=== PATIENT | male | born 1945 | race Caucasian/White ===

== ENCOUNTER 2021-12-12 20:42 | Inpatient (IN) | payer MEDICARE, BC ==
[~2021-12-12] VITALS: Ht 160 cm; Wt 44.9 kg
[2021-12-12 20:00] VITALS: BP 161/90
[2021-12-12 21:20] VITALS: BP 155/88
--- NOTE | 2021-12-12 21:20 | NUR ---
GPS ADMISSION NOTE, RECEIVED PATIENT FROM [facility]. PATIENT ARRIVED ON THIS UNIT AT 2120 VIA STRETCHER WITH 2 EMT ESCORTS. PATIENT ADMITTED ON A 5150 HOLD FOR DTS. PER HOLD PATIENT STATES, " I JUST WANT TO , LEAVE ME TO , AND I DON'T WANT TO LIVE ". PATIENT ADMITS TO ONGOING AND UNRESOLVED DEPRESSION. PATIENT DOES NOT FEEL SAFE AT THIS TIME. PATIENT DAUGHTER THINKS THAT HER MOTHER IS IMPULSIVE AND THIS IS A NEW BEHAVIOR. PATIENT UNABLE TO CONTRACT FOR SAFETY AT THIS TIME. THE 5150 WAS REVIEWED AND THE DOCUMENTATION IN THE 5150 HOLD APPEARS TO REFLECT THE PRESENTATION OF THE PATIENT. UPON FACE TO FACE ASSESSMENT PATIENT IS NOTED TO BEING HYPERVERBAL, DISHEVELED, DISORGANIZED, DEMANDING, COOPERATIVE, AND NEEDS REDIRECTION. PATIENT IS CURRENTLY LYING IN BED AWAKE. PATIENT IS DISPLAYING NO S/S OF APPARENT DISTRESS. PATIENT HAS CHRONIC LEFT ABDOMINAL AND LEFT BACK PAIN DUE TO HAVING SHINGLES. PATIENT IS TAKING ORAL PAIN MEDICATION FOR THIS PAIN. PATIENT BREATHING IS UNLABORED WITH EQUAL RISE AND FALL OF THE CHEST. PATIENT IS ALERT AND ORIENTATED X 3 ON ROOM AIR. PATIENT ASSISTED WITH TURING AND REPOSITIONING Q2HR AND PRN FOR COMFORT AND CIRCULATION. PATIENT HAS NO NEEDS AT THIS TIME. PATIENT DENIES HOMICIDAL IDEATIONS AT THIS TIME. PATIENT SIGNED ALL NECESSARY PAPER WORK. PATIENT ADVISED OF HER HOLD AND PATIENT RIGHTS BOOKLET GIVEN. PATIENT IS UNDER THE PSYCHIATRIC CARE OF DR. KHALIL AND THE MEDICAL CARE OF DR GONZALEZ. PATIENT BELONGINGS WERE INVENTORIED AND CHECKED FOR CONTRABAND. ALL CONTRABAND REMOVED AND STORED IN PATIENT HALLWAY LOCKER. PATIENT ADVANCED DIRECTIVES PREFERENCE, IMMUNIZATIONS QUESTIONER, NECESSARY PAPERWORK COMPLETED. PATIENT REFUSED SKIN ASSESSMENT. PATIENT ORIENTATED TO ROOM, FLOOR, AND STAFF WITH ALL QUESTIONS ANSWERED. PATIENT EDUCATED ON THE USE OF THE CALL VANESSA. PATIENT BED SIDE RAILS ARE UP X 2 FOR SAFETY. PATIENT BED IS LOCKED, LOW AND I WILL CONTINUE TO MONITOR THIS PATIENT Q 15 MIN WITH THE HELP OF STAFF TO MAINTAIN SAFETY.
[2021-12-12] MEDS ORDERED: AMOX1TAB16 PO (22:16)
[2021-12-12] MEDS ORDERED: PRED5DRO17 RIGHTEYE (22:16)
[2021-12-12] MEDS ORDERED: KETO5DRO39 RIGHTEYE (22:16)
[2021-12-12] MEDS ORDERED: BIMA2.5D6 RIGHTEYE (22:18)
[2021-12-12] MEDS ORDERED: BRIM5DRO2 RIGHTEYE (22:19)
[2021-12-12] MEDS ORDERED: HYDR-4209 PO (22:21)
[2021-12-12] MEDS ORDERED: LORAZEPAM 0.5 MG TABLET PO PRN (22:30)
[2021-12-12] MEDS ORDERED: MAGNESIUM HYDROXIDE 30 ML UDC PO PRN (22:30)
[2021-12-12] MEDS ORDERED: MAG HYDROX/AL HYDROX/SIMETH 30 ML UDC PO PRN (22:30)
--- NOTE | 2021-12-12 22:56 | NUR ---
GPS RN NOTE, PATIENT HAS A COMPLAINT OF FEELING ANXIOUS AND IS REQUESTING ATIVAN AT THIS TIME. PATIENT VITAL SIGNS ARE STABLE. GAVE ATIVAN 0.5MG PO Q6 HR PRN ORDERED. WILL REASSESS FOR ANXIETY AND I WILL CONTINUE TO MONITOR THIS PATIENT WITH THE HELP OF STAFF.
--- NOTE | 2021-12-12 23:00 | NUR ---
GPS RN NOTE, PATIENT HAS A COMPLAINT OF CHRONIC PAIN AT A 8 OUT OF 10 ON THE PAIN SCALE DUE TO SHINGLES ON HER LEFT ABDOMINAL AND BACK. PATIENT IS REQUESTING NORCO AT THIS TIME. [facility] AND INFORMED DR YANES OF MY FINDINGS. DR YANES ORDERED NORCO 5-325 1 TAB PO Q6HR PRN. ALL ORDERS NOTED AND CARRIED OUT WILL CONTINUE TO MONITOR THIS PATIENT WITH THE HELP OF STAFF.
[2021-12-12] MEDS: HYDROCODONE/APAP 5/325MG TABLET PO PRN (23:17)
--- NOTE | 2021-12-12 23:17 | NUR ---
GPS RN NOTE, PATIENT HAS A COMPLAINT OF CHRONIC PAIN AT A 8 OUT OF 10 ON THE PAIN SCALE DUE TO SHINGLES ON HER LEFT ABDOMINAL AND BACK. PATIENT IS REQUESTING NORCO AT THIS TIME. PATIENT VITAL SIGNS ARE STABLE. GAVE NORCO 5-325 1 TAB PO Q6HR PRN ORDERED. WILL REASSESS PAIN AND I WILL CONTINUE TO MONITOR THIS PATIENT WITH THE HELP OF STAFF.
[2021-12-12] MEDS ORDERED: BLOOD SUGAR DIAGNOSTIC 1 EACH STRIP IN ONE (23:30)
[2021-12-13] MEDS ORDERED: DEXTROSE 50%-WATER 50 ML DISP.SYRIN IV PRN
[2021-12-13] MEDS ORDERED: *INSULIN REGULAR(HUMULIN R)HUM 100 UNIT/ML VIAL SQ PRN
[2021-12-13 07:21] LABS: BASOPHILS # (AUTO) 0.1 K/uL (0.0-0.2); BASOPHILS % (AUTO) 1.4 % (0.0-2.0); EOSINOPHILS % (AUTO) 3.3 % (0.0-6.0); HEMATOCRIT 39 % (39-51); HEMOGLOBIN 13.3 g/dL (13.5-17.5); LYMPHOCYTES # (AUTO) 1.4 K/uL (0.8-4.8); LYMPHOCYTES % (AUTO) 21.7 % (20.0-44.0); MEAN CORPUSCULAR HGB CONC 34 g/dl (31.0-36.0); MEAN CORPUSCULAR VOLUME 91 fL (80-96); MONOCYTES # (AUTO) 0.5 K/uL (0.1-1.30); MONOCYTES % (AUTO) 8.1 % (2.0-12.0); NEUTROPHILS # (AUTO) 4.3 K/uL (1.8-8.9); NEUTROPHILS % (AUTO) 65.5 % (43.0-81.0); PLATELET COUNT (AUTO) 281 K/uL (150-450); RED BLOOD CELL COUNT(AUTO) 4.33 MIL/uL (4.5-6.0); WHITE BLOOD COUNT (AUTO) 6.6 K/uL (4.3-11.0)
[2021-12-13] MEDS: BLOOD SUGAR DIAGNOSTIC 1 EACH STRIP VI SCH ×4 (07:30→21:21)
[2021-12-13 07:50] LABS: CALCIUM, SERUM 8.7 mg/dL (8.5-10.1); CARBON DIOXIDE 31 mmol/L (21-32); CHLORIDE 103 mmol/L (98-107); CREATININE 0.6 mg/dL (0.6-1.3); GLUCOSE 96 mg/dL (74-106); POTASSIUM 3.9 mmol/L (3.5-5.1); SODIUM SERUM 139 mmol/L (136-145); UREA NITROGEN, BLOOD 11 mg/dL (7-18)
[2021-12-13 07:52] LABS: CHOLESTEROL 187 mg/dL (<200); HDL CHOLESTEROL 103 mg/dL (40-60); LDL 70 mg/dL (0-99); TRIGLYCERIDES 64 mg/dL (30-150)
[2021-12-13 08:00] VITALS: BP 138/73
--- NOTE | 2021-12-13 08:38 | NUR ---
RN-CO: PATIENT STATED TO DR SANTANA " I WON'T EAT IF YOU DON'T CHANGE MY DIET TO REGULAR DIET." PT REFUSED TO EAT BREAKFAST. DIET CHANGED TO REGULAR DIET PER PT REQUEST.
--- NOTE | 2021-12-13 09:20 | NUR ---
RN-CO: DR VAZQUEZ MADE AWARE TO RECONCILE HOME MEDS.
[2021-12-13] MEDS: GLUCERNA SHAKE 237 ML CAN PO SCH ×2 (09:36→17:18)
[2021-12-13] MEDS: ESCITALOPRAM OXALATE (10 MG) 10 MG TABLET PO SCH (09:40)
--- NOTE | 2021-12-13 10:09 | NUR ---
RN-CO: PATIENT DENIED SUICIDAL IDEATION, BUT HAS BLUNTED AFFECT. SHE IS IRRITABLE WITH PRESSURED SPEECH. SHE HAS POOR APETITE AND REQUESTED TO CHANGE HER DIET TO REGULAR, OR ELSE SHE WON'T EAT SHE STATED.NO ACUTE DISTRESS NOTED, WE WILL CONTINUE TO MONITOR AND KEEP HER SAFE.
[2021-12-13] MEDS: ACETAMINOPHEN 325 MG TABLET PO PRN (11:41)
[2021-12-13] MEDS: INSULIN REGULAR, HUMAN 100 UNIT/ML 3 ML VIAL SQ PRN ×2 (12:28→17:24)
[2021-12-13 16:13] VITALS: BP 142/82
--- NOTE | 2021-12-13 17:25 | NUR ---
BLOOD GLUCOSE 146. REFUSED INSULIN COVERAGE. RISKS VS BENEFITS EXPLAINED, VERBALIZED UNDERSTANDING AND STILL REFUSED. OFFERED TIMES THREE.
--- NOTE | 2021-12-13 17:35 | NUR ---
RN-CO: DR VAZQUEZ WAS NOTIFIED AGAIN TO RECONCILE HOME MEDS.
[2021-12-13] MEDS: KETOROLAC EYE 0.5% 3 ML BOTTLE RIGHTEYE SCH (18:40)
[2021-12-13 20:00] VITALS: BP 145/81
[2021-12-13 20:19] VITALS: BP 145/81
[2021-12-13] MEDS: HYDROCODONE/APAP 5/325MG TABLET PO PRN (20:29)
--- NOTE | 2021-12-13 20:31 | NUR ---
GPS RN NOTE: PAIN PATIENT C/O LEFT BACK PAIN 12/09 AND WANTED TO TAKE NORCO AT THIS TIME. PRN NORCO 5-325 MG 1 TAB PO ADMINISTERED. WILL REASSESS THE PATIENT FOR PAIN MEDICATION EFFECTIVENESS.
[2021-12-13] MEDS: prednisoLONE ACETATE 1% SUSP 5 ML BOTTLE RIGHTEYE SCH (21:13)
--- NOTE | 2021-12-13 22:00 | NUR ---
GPS RN NOTE PATIENT'S BLOOD GLUCOSE LEVEL IS 272 MG/DL, PATIENT REFUSED SLIDING SCALE INSULIN DESPITE OF RISKS AND BENEFITS EXPLANATIONS, PER PATIENT," I HAVE NEVER BEEN DIAGNOSED WITH DIABETES, I DON'T KNOW WHERE IT CAME FROM, I HAD SURGERY AND EVERYTHING WAS FINE AT THAT TIME." PATIENT CONTINUED TO REFUSE INSULIN TONIGHT X 3. WILL CONTINUE TO MONITOR.
--- NOTE | 2021-12-13 22:38 | NUR ---
GPS RN NOTE PATIENT REFUSED WEEKLY SKIN ASSESSMENT TONIGHT X 3 DESPITE OF EXPLANATIONS, PATIENT CONTINUED TO REFUSE. PATIENT IS EASILY ANXIOUS AND RESTLESS, WANTED TO SLEEP AND NOT TO BE BOTHERED AT NIGHT.
[2021-12-14] MEDS: HYDROCODONE/APAP 5/325MG TABLET PO PRN ×2 (06:27→22:58)
[2021-12-14] MEDS: BLOOD SUGAR DIAGNOSTIC 1 EACH STRIP VI SCH ×4 (07:49→21:34)
[2021-12-14 08:00] VITALS: BP 142/71
[2021-12-14] MEDS: GLUCERNA SHAKE 237 ML CAN PO SCH ×2 (08:04→17:05)
[2021-12-14] MEDS: ESCITALOPRAM OXALATE (10 MG) 10 MG TABLET PO SCH (08:39)
[2021-12-14] MEDS: TIMOLOL 0.25% SOL OPHTH 10 ML BOTTLE RIGHTEYE SCH ×2 (08:40→17:04)
[2021-12-14] MEDS: LATANOPROST EYE DROP 0.005% 2.5 ML BOTTLE RIGHTEYE SCH ×2 (08:40→17:04)
[2021-12-14] MEDS: KETOROLAC EYE 0.5% 3 ML BOTTLE RIGHTEYE SCH ×2 (08:40→17:04)
[2021-12-14] MEDS: prednisoLONE ACETATE 1% SUSP 5 ML BOTTLE RIGHTEYE SCH ×4 (08:41→21:34)
--- NOTE | 2021-12-14 11:00 | NUR ---
Treatment Plan: Pt refused to sign treatment plan. Pt withdrawn and isolative did not want to sign.
--- NOTE | 2021-12-14 11:00 | NUR ---
PEREZ Initial Discharge Note: Pt stated that she lives alone located at [address] [place] [address]; ([phone]). Pt would want to return back home upon dc. PEREZ will work with the MD, family, and pt to help coordinate an appropriate discharge.
--- NOTE | 2021-12-14 11:00 | NUR ---
PEREZ Clinical Note: Pt placed on a 5150 hold for danger to herself. Pt has been depressed at home and family stated that she needs inpatient treatment. Pt stated that she lives alone located at [address] [place] [address]; ([phone]). Pt would want to return back home upon dc.
--- NOTE | 2021-12-14 11:30 | NUR ---
SW Family Contact: SW attempted to contact pt's daughter Lea ([phone]) and left a detailed voicemail.
[2021-12-14] MEDS: INSULIN REGULAR, HUMAN 100 UNIT/ML 3 ML VIAL SQ PRN (12:09)
[2021-12-14 16:00] VITALS: BP 140/70
[2021-12-14 20:10] VITALS: BP 140/68
[2021-12-14 20:23] VITALS: BP 140/68
[2021-12-14] MEDS: ACETAMINOPHEN 325 MG TABLET PO PRN (20:24)
--- NOTE | 2021-12-14 20:26 | NUR ---
GPS RN NOTE: PAIN PATIENT C/O LEFT LOWER BACK AND LEFT KNEE PAIN 08/09 AND WANTED TO TAKE TYLENOL AT THIS TIME INSTEAD OF NORCO. PRN TYLENOL 650 MG PO ADMINISTERED PER PATIENT REQUEST. WILL CONTINUE TO MONITOR FOR ANY CHANGE OF CONDITION.
--- NOTE | 2021-12-14 21:47 | NUR ---
GPS RN NOTE PATIENT'S BS LEVEL IS 79 MG/DL, PATIENT IS ASYMPTOMATIC, TOOK A SHOWER. OFFERED SNACKS AND ORANGE JUICE AND PATIENT TOLERATED WELL. WILL CONTINUE TO MONITOR FOR ANY CHANGE OF CONDITION.
--- NOTE | 2021-12-14 23:00 | NUR ---
GPS RN NOTE: PAIN PATIENT C/O LEFT BACK PAIN 12/09 AND WANTED TO TAKE NORCO AT THIS TIME. PRN NORCO 5-325 MG 1 TAB PO ADMINISTERED PER PATIENT REQUEST. WILL REASSESS THE PATIENT FOR PAIN MEDICATION EFFECTIVENESS.
--- NOTE | 2021-12-15 06:52 | NUR ---
GPS RN NOTE PATIENT'S DAUGHTER KIYA CALLED AND STATED THAT SHE WANTS TO TALK TO HER MOTHER'S PSYCHIATRIST AT [phone], RELAYED MESSAGE TO LIBERTAD SANTANA AT THIS TIME AND SHAMA STATED HE WILL CALL KIYA.
[2021-12-15] MEDS: BLOOD SUGAR DIAGNOSTIC 1 EACH STRIP VI SCH ×4 (07:50→22:04)
[2021-12-15] MEDS: INSULIN REGULAR, HUMAN 100 UNIT/ML 3 ML VIAL SQ PRN ×3 (07:50→17:07)
[2021-12-15 08:00] VITALS: BP 160/84
[2021-12-15] MEDS: GLUCERNA SHAKE 237 ML CAN PO SCH ×2 (08:03→17:01)
--- NOTE | 2021-12-15 09:00 | NUR ---
RN NOTE- ALERT CONFUSED DEPRESSED TEARFUL HOPELESSNESS NOTED IN INTERACTIONS, PO INTAKE POOR MED COMPLIANT WITHDRAWN
--- NOTE | 2021-12-15 09:02 | NUR ---
PEREZ Family Contact: PEREZ received a call from patient's daughter Lea ([phone]) who stated that she is in the process of finding an assisted living in [place] and stated that they will contact this contract technical writer. PEREZ shared information and explained the 627/2355 process.
[2021-12-15] MEDS: HYDROCODONE/APAP 5/325MG TABLET PO PRN ×2 (09:12→16:44)
[2021-12-15] MEDS: KETOROLAC EYE 0.5% 3 ML BOTTLE RIGHTEYE SCH ×2 (09:13→17:01)
[2021-12-15] MEDS: LATANOPROST EYE DROP 0.005% 2.5 ML BOTTLE RIGHTEYE SCH ×2 (09:13→17:01)
[2021-12-15] MEDS: ESCITALOPRAM OXALATE (10 MG) 10 MG TABLET PO SCH (09:13)
[2021-12-15] MEDS: prednisoLONE ACETATE 1% SUSP 5 ML BOTTLE RIGHTEYE SCH ×4 (09:14→21:24)
[2021-12-15] MEDS: TIMOLOL 0.25% SOL OPHTH 10 ML BOTTLE RIGHTEYE SCH ×2 (09:14→17:01)
--- NOTE | 2021-12-15 11:31 | NUR ---
SW Family Contact: SW received a call from pt's daughter Lea ([phone]) who stated that she would actually want this board writer to find pt a nursing facility and is open for this board writer to find placement in the [place] location.
--- NOTE | 2021-12-15 11:33 | NUR ---
SNF Referral: PEREZ sent clinicals to Lea chaparro from [facility] ([phone]) for placement option. SW sent H & P, progress notes, and medication list.
[2021-12-15] MEDS: PREGABALIN 25 MG CAPSULE PO SCH ×2 (12:49→21:00)
--- NOTE | 2021-12-15 13:22 | NUR ---
PEREZ Family Contact: SW received a call from pt's daughter Lea ([phone]) stating that family might have DPOA and will send to this technical publications writer to review.
[2021-12-15 16:00] VITALS: BP 141/82
[2021-12-15 20:15] VITALS: BP 130/75
[2021-12-15 20:25] VITALS: BP 130/75
[2021-12-15] MEDS: ACETAMINOPHEN 325 MG TABLET PO PRN (21:14)
--- NOTE | 2021-12-15 21:16 | NUR ---
GPS RN NOTE: PAIN PATIENT C/O LEFT LOWER BACK AND LEFT KNEE PAIN 07/09 AND WANTED TO TAKE TYLENOL AT THIS TIME INSTEAD OF LYRICA. PRN TYLENOL 650 MG PO ADMINISTERED PER PATIENT REQUEST. WILL CONTINUE TO MONITOR FOR ANY CHANGE OF CONDITION.
--- NOTE | 2021-12-15 22:04 | NUR ---
PATIENT WAS OFFERED LYRICA ORDERED BY AT 2100 BUT PATIENT PREFERRED TO TAKE TYLENOL FIRST. AGAIN OFFERED LYRICA TO THE PATIENT AT THIS TIME BUT PATIENT STATED," NOT YET, LATER." WILL CHECK WITH THE PATIENT IF SHE AGREES TO TAKE LYRICA ORDERED.
--- NOTE | 2021-12-15 22:23 | NUR ---
GPS RN NOTE: MILK OF MAGNESIA GIVEN PATIENT C/O CONSTIPATION AND WANTED TO TAKE MEDICINE. PER PATIENT REQUEST, PRN MILK OF MAGNESIA ADMINISTERED ORDERED BY MD. WILL CONTINUE TO MONITOR.
--- NOTE | 2021-12-15 22:33 | NUR ---
GPS RN NOTE PATIENT'S BLOOD GLUCOSE LEVEL IS 162 MG/DL, PATIENT REFUSED SLIDING SCALE INSULIN X 3 ORDERED BY MD.
--- NOTE | 2021-12-15 22:39 | NUR ---
GPS RN NOTE: MEDICATION REFUSAL PATIENT WAS OFFERED LYRICA MULTIPLE TIMES BUT AT THIS TIME PATIENT STATED," I WILL SKIP IT TONIGHT." DESPITE OF RISKS AND BENEFITS EXPLANATIONS, PATIENT CONTINUED TO REFUSE.
--- NOTE | 2021-12-16 00:52 | NUR ---
GPS RN NOTE: NEW ORDER PER PATIENT, SHE NEEDS VITAMIN B12 INJECTION DURING HER STAY AT [facility] SINCE SHE NEEDS TO GET THIS INJECTION EVERY MONTH SINCE HER ABDOMINAL SURGERY LONG TIME BACK. PER PATIENT SHE HAD HER LAST VITAMIN B12 INJECTION ON October AND IS DUE THIS MONTH ON DECEMBER 18, 2021. PATIENT'S CONCERN RELAYED TO YAQUELIN MCGUIRE NP AND PROGRAM MANAGER TRANSPORTATION ORDERED VITAMIN B12 INJECTION PER PATIENT REQUEST. PATIENT MADE AWARE.
[2021-12-16] MEDS: ACETAMINOPHEN 325 MG TABLET PO PRN ×2 (03:59→20:01)
--- NOTE | 2021-12-16 04:02 | NUR ---
GPS RN NOTE: PAIN PATIENT C/O BACK PAIN 08/09 AND REQUESTED TO TAKE TYLENOL INSTEAD OF NORCO. PRN TYLENOL 650 MG PO ADMINISTERED. WILL CONTINUE TO MONITOR.
[2021-12-16] MEDS: BLOOD SUGAR DIAGNOSTIC 1 EACH STRIP VI SCH ×5 (07:30→21:14)
[2021-12-16 08:00] VITALS: BP 121/68
[2021-12-16] MEDS: prednisoLONE ACETATE 1% SUSP 5 ML BOTTLE RIGHTEYE SCH ×4 (08:04→20:53)
[2021-12-16] MEDS: TIMOLOL 0.25% SOL OPHTH 10 ML BOTTLE RIGHTEYE SCH ×2 (08:04→16:02)
[2021-12-16] MEDS: KETOROLAC EYE 0.5% 3 ML BOTTLE RIGHTEYE SCH ×2 (08:04→16:01)
[2021-12-16] MEDS: LATANOPROST EYE DROP 0.005% 2.5 ML BOTTLE RIGHTEYE SCH ×2 (08:10→16:02)
[2021-12-16] MEDS: GLUCERNA SHAKE 237 ML CAN PO SCH ×2 (08:42→17:47)
[2021-12-16] MEDS: PREGABALIN 25 MG CAPSULE PO SCH ×2 (09:18→20:53)
[2021-12-16] MEDS: ESCITALOPRAM OXALATE (10 MG) 10 MG TABLET PO SCH (09:18)
--- NOTE | 2021-12-16 10:38 | NUR ---
RN-CO: PATIENT IS ISOLATIVE AND DEPRESSED. UNMOTIVATED AND GUARDED. REFUSED TO PARTICIPATE IN GROUP ACTIVITIES. SHE DENIED SUICIDAL IDEATIONS.I ENCOURAGED HER TO VENTILATE FEELING AND GO OUT FROM HER ROOM AND ATTEND GROUP ACTIVITIES.
--- NOTE | 2021-12-16 10:52 | NUR ---
DPOA: SW received Lea ([phone]) DPOA document from daughter who is the general durable power of litigation attorney associate and general durable power of litigation attorney associate for health care. SW placed it in the chart.
--- NOTE | 2021-12-16 13:53 | NUR ---
RN-CO: PT IS ACCUSING STAFF THAT THEY ARE NOT GIVING HER EYE DROPS, HOWEVER , STAFF IS DILIGENT IN GIVING ALL HER PRESCRIBED MEDICATIONS AND IT IS DOCUMENTED THAT MED WERE GIVEN.
[2021-12-16 16:00] VITALS: BP 124/74
--- NOTE | 2021-12-16 17:18 | NUR ---
RN-CO: BS 126 , NO COVERAGE.
--- NOTE | 2021-12-16 19:15 | NUR ---
GPS RN NOTES RECEIVED PATIENT IN BED AWAKE, ALERT AND ORIENTED X3. ABLE TO MAKE NEEDS KNOWN. NO S/SX OF ACUTE DISTRESS NOTED. PATIENT REMAINS ANXIOUS, DEPRESSED MOOD, GUARDED, NEEDY. DENIES BEING SUICIDAL OR HOMICIDAL AT THIS TIME. SAFETY PRECAUTIONS MAINTAINED. WILL CONTINUE TO MONITOR Q15MIN ROUNDS FOR SAFETY AND BEHAVIOR.
[2021-12-16 20:00] VITALS: BP 126/74
[2021-12-16] MEDS: HYDROCODONE/APAP 5/325MG TABLET PO PRN (23:07)
[2021-12-17] MEDS: BLOOD SUGAR DIAGNOSTIC 1 EACH STRIP VI SCH (07:45)
[2021-12-17 08:00] VITALS: BP 113/68
[2021-12-17] MEDS: GLUCERNA SHAKE 237 ML CAN PO SCH (08:00)
--- NOTE | 2021-12-17 08:54 | NUR ---
SNF Contact: SW received a call from Lea from [facility] ([phone]) who stated that pt is accepted.
--- NOTE | 2021-12-17 08:56 | NUR ---
PEREZ Family Contact: PEREZ spoke with patient's daughter Lea ([phone]) DPOA and stated pt is accepted at [facility] and she would want to tour the facility.
[2021-12-17] MEDS: PREGABALIN 25 MG CAPSULE PO SCH ×2 (09:25→21:00)
[2021-12-17] MEDS: ESCITALOPRAM OXALATE (10 MG) 10 MG TABLET PO SCH (09:26)
[2021-12-17] MEDS: LATANOPROST EYE DROP 0.005% 2.5 ML BOTTLE RIGHTEYE SCH ×2 (09:29→16:39)
[2021-12-17] MEDS: prednisoLONE ACETATE 1% SUSP 5 ML BOTTLE RIGHTEYE SCH ×4 (09:29→21:00)
[2021-12-17] MEDS: TIMOLOL 0.25% SOL OPHTH 10 ML BOTTLE RIGHTEYE SCH ×2 (09:30→16:38)
[2021-12-17] MEDS: KETOROLAC EYE 0.5% 3 ML BOTTLE RIGHTEYE SCH ×2 (09:30→16:38)
--- NOTE | 2021-12-17 11:06 | NUR ---
Individual Therapy: PEREZ attempted to conduct brief therapy. Pt is confused and disorganized. Pt unable to have a proper conversation due to her dementia. Addendum: 12/17/21 at 1107 by PEREZ MILIAN wrong patient
--- NOTE | 2021-12-17 11:36 | NUR ---
RN-NOTES T.O FROM LIBERTAD ZUNIGA TO D/C ACCU CHECK. NOTED AND CARRIED OUT.
[2021-12-17] MEDS: ACETAMINOPHEN 325 MG TABLET PO PRN (14:41)
[2021-12-17 16:00] VITALS: BP 111/66
[2021-12-17] MEDS ORDERED: ENSURE ENLIVE 237 ML LIQUID (VANILLA) PO SCH (17:00)
[2021-12-17] MEDS: ENSURE ENLIVE CHOC 237 ML CAN PO SCH (17:42)
--- NOTE | 2021-12-17 18:36 | NUR ---
RN-NOTES PATIENT ISOLATIVE IN HER ROOM LYING IN BED AWAKE,A/O X3,GUARDED,NO ACUTE DISTRESS NOTED. COMPLIANT WITH MEDICATIONS.AMBULATORY STEADY GAIT. ABLE TO MAKE NEEDS KNOWN TO THE STAFF.ALL NEEDS ATTENDED AND ANTICIPATED.WILL CONT. MONITORING FOR SAFETY AND BEHAVIOR.WILL ENDORSE TO INCOMING SHIFT FOR CONTINUITY OF CARE.
--- NOTE | 2021-12-17 19:15 | NUR ---
GPS RN NOTES RECEIVED PATIENT IN BED AWAKE, ALERT AND ORIENTED X3. ABLE TO MAKE NEEDS KNOWN. NO S/SX OF ACUTE DISTRESS NOTED. PATIENT REMAINS ANXIOUS, DEPRESSED MOOD, GUARDED, NEEDY AND ISOLATIVE. DENIES BEING SUICIDAL OR HOMICIDAL AT THIS TIME. SAFETY PRECAUTIONS MAINTAINED. WILL CONTINUE TO MONITOR Q15MIN ROUNDS FOR SAFETY AND BEHAVIOR.
[2021-12-17 20:00] VITALS: BP 131/72
[2021-12-17] MEDS: SALINE NASAL SPRAY 0.65% 1 BOTTLE BOTTLE NS PRN (21:00)
[2021-12-17] MEDS: HYDROCODONE/APAP 5/325MG TABLET PO PRN (22:10)
--- NOTE | 2021-12-18 08:12 | NUR ---
Court Notification: SW contacted pt's NAFISA Tate ([phone]) and notified of pt's 8242 hearing is today.
[2021-12-18] MEDS: ESCITALOPRAM OXALATE (10 MG) 10 MG TABLET PO SCH (08:42)
[2021-12-18] MEDS: PREGABALIN 25 MG CAPSULE PO SCH ×2 (08:42→21:13)
[2021-12-18] MEDS: ENSURE ENLIVE CHOC 237 ML CAN PO SCH ×2 (08:56→16:17)
[2021-12-18] MEDS ORDERED: CYANOCOBALAMIN 1,000 MCG/ML VIAL IM SCH (09:00)
[2021-12-18] MEDS: KETOROLAC EYE 0.5% 3 ML BOTTLE RIGHTEYE SCH ×2 (09:03→16:16)
[2021-12-18] MEDS: LATANOPROST EYE DROP 0.005% 2.5 ML BOTTLE RIGHTEYE SCH ×2 (09:04→16:16)
[2021-12-18] MEDS: TIMOLOL 0.25% SOL OPHTH 10 ML BOTTLE RIGHTEYE SCH ×2 (09:04→16:15)
[2021-12-18] MEDS: prednisoLONE ACETATE 1% SUSP 5 ML BOTTLE RIGHTEYE SCH ×4 (09:04→21:13)
--- NOTE | 2021-12-18 09:46 | NUR ---
Court Hearing: Patient's court hearing for 5250 was today and it was upheld for GD and danger to self.
--- NOTE | 2021-12-18 09:49 | NUR ---
PEREZ Family Contact: SW spoke with patient's daughter Lea ([phone]) DPOA and notified that the hearing was upheld.
--- NOTE | 2021-12-18 09:49 | NUR ---
SNF Contact: SW received a call from Lea cahparro from [facility] ([phone]) who stated that pt is accepted.
[2021-12-18] MEDS: SALINE NASAL SPRAY 0.65% 1 BOTTLE BOTTLE NS PRN (10:21)
[2021-12-18 10:37] VITALS: BP 115/71
--- NOTE | 2021-12-18 13:06 | NUR ---
RN-NOTES PATIENT COMPLAINED OF DIARRHEA, ELECTRICAL MECHANIC EFRAIN MADE AWARE WITH T.O ORDER OF LOMOTIL 1 TAB. P.O Q4HR PRN. NOTED AND CARRIED OUT.
[2021-12-18] MEDS: DIPHENOXYLATE HCL/ATROP SULF 1 UDTAB TABLET PO PRN (14:07)
--- NOTE | 2021-12-18 14:08 | NUR ---
RN-NOTES PATIENT C/O DIARRHEA,LOMOTIL 1 TAB. GIVEN PRN ORDER.
[2021-12-18 16:00] VITALS: BP 117/71
--- NOTE | 2021-12-18 17:53 | NUR ---
RN-NOTES PATIENT ISOLATIVE IN HER ROOM LYING IN BED AWAKE,A/O X3,GUARDED,NO ACUTE DISTRESS NOTED. COMPLIANT WITH MEDICATIONS.AMBULATORY STEADY GAIT. ABLE TO MAKE NEEDS KNOWN TO THE STAFF.ALL NEEDS ATTENDED AND ANTICIPATED.WILL CONT. MONITORING FOR SAFETY AND BEHAVIOR.WILL ENDORSE TO INCOMING SHIFT FOR CONTINUITY OF CARE. Addendum: 12/18/21 at 1907 by MYRA SIMPSON RN PATIENT STATED" LOMOTIL HELPS WITH MY DIARRHEA".
--- NOTE | 2021-12-18 20:00 | NUR ---
RN NOTES:RECEIVED PATIENT IN BED AWAKE, ALERT.. NO S/SX OF ACUTE DISTRESS NOTED. PATIENT REMAINS ANXIOUS, DEPRESSED MOOD, GUARDED, NEEDY,DEMANDING. DENIES BEING SUICIDAL OR HOMICIDAL AT THIS TIME. SAFETY PRECAUTIONS MAINTAINED. WILL CONTINUE TO MONITOR Q15MIN ROUNDS FOR SAFETY AND BEHAVIOR.
[2021-12-18] MEDS: TEMAZEPAM 7.5 MG CAPSULE PO PRN (22:24)
--- NOTE | 2021-12-18 22:26 | NUR ---
RN NOTES: INSOMNIA PT. C/O UNABLE TO SLEEP , PRN RESTORIL 7.5 MG PO GIVEN PER PT. REQUEST,WILL CONTINUE TO MONITOR
[2021-12-18 22:30] VITALS: BP 135/70
[2021-12-18] MEDS: ACETAMINOPHEN 325 MG TABLET PO PRN (23:15)
[2021-12-19] MEDS: ENSURE ENLIVE CHOC 237 ML CAN PO SCH ×2 (07:49→16:37)
[2021-12-19 08:00] VITALS: BP 127/73
[2021-12-19] MEDS: ESCITALOPRAM OXALATE (10 MG) 10 MG TABLET PO SCH (08:22)
[2021-12-19] MEDS: PREGABALIN 25 MG CAPSULE PO SCH ×2 (08:22→20:41)
[2021-12-19] MEDS: DIPHENOXYLATE HCL/ATROP SULF 1 UDTAB TABLET PO PRN (08:22)
[2021-12-19] MEDS: TIMOLOL 0.25% SOL OPHTH 10 ML BOTTLE RIGHTEYE SCH ×2 (08:26→16:37)
[2021-12-19] MEDS: prednisoLONE ACETATE 1% SUSP 5 ML BOTTLE RIGHTEYE SCH ×4 (08:26→20:42)
[2021-12-19] MEDS: KETOROLAC EYE 0.5% 3 ML BOTTLE RIGHTEYE SCH ×2 (08:26→16:37)
[2021-12-19] MEDS: LATANOPROST EYE DROP 0.005% 2.5 ML BOTTLE RIGHTEYE SCH ×2 (08:27→16:37)
[2021-12-19 16:00] VITALS: BP 101/54
--- NOTE | 2021-12-19 18:22 | NUR ---
RN-NOTES PATIENT ISOLATIVE IN HER ROOM LYING IN BED AWAKE,A/O X3,GUARDED,NO ACUTE DISTRESS NOTED. COMPLIANT WITH MEDICATIONS.COMPLAINED OF EPISODE OF DIARRHEA PRN MEDICATIONS GIVEN .AMBULATORY STEADY GAIT. ABLE TO MAKE NEEDS KNOWN TO THE STAFF.ALL NEEDS ATTENDED AND ANTICIPATED.WILL CONT. MONITORING FOR SAFETY AND BEHAVIOR.WILL ENDORSE TO INCOMING SHIFT FOR CONTINUITY OF CARE.
--- NOTE | 2021-12-19 20:33 | NUR ---
RN NOTES: RECEIVED PATIENT IN BED AWAKE, ALERT. NO S/SX OF ACUTE DISTRESS NOTED. PATIENT REMAINS ANXIOUS, DEPRESSED MOOD, GUARDED, NEEDY,DEMANDING. DENIES SUICIDAL OR HOMICIDAL AT THIS TIME. SAFETY PRECAUTIONS MAINTAINED. WILL CONTINUE TO MONITOR Q15MIN ROUNDS FOR SAFETY AND BEHAVIOR.
[2021-12-19 20:59] VITALS: BP 118/72
[2021-12-19] MEDS: TEMAZEPAM 7.5 MG CAPSULE PO PRN (22:36)
--- NOTE | 2021-12-19 22:37 | NUR ---
RN NOTES: INSOMNIA PT. C/O UNABLE TO SLEEP , PRN RESTORIL 7.5 MG PO GIVEN PER PT. REQUEST,WILL CONTINUE TO MONITOR
[2021-12-20] MEDS: ACETAMINOPHEN 325 MG TABLET PO PRN ×2 (04:09→21:04)
--- NOTE | 2021-12-20 04:10 | NUR ---
RN NOTE: PT.C/O HEADACHE PRN TYLENOL 650 MG PO GIVEN PER PT. REQUEST, WILL CONTINUE TO MONITOR.
[2021-12-20 08:00] VITALS: BP 142/69
[2021-12-20] MEDS: ENSURE ENLIVE CHOC 237 ML CAN PO SCH ×2 (08:12→17:16)
[2021-12-20] MEDS: PREGABALIN 25 MG CAPSULE PO SCH ×2 (08:13→20:52)
[2021-12-20] MEDS: ESCITALOPRAM OXALATE (10 MG) 10 MG TABLET PO SCH (08:13)
[2021-12-20] MEDS: TIMOLOL 0.25% SOL OPHTH 10 ML BOTTLE RIGHTEYE SCH ×2 (08:14→16:06)
[2021-12-20] MEDS: LATANOPROST EYE DROP 0.005% 2.5 ML BOTTLE RIGHTEYE SCH ×2 (08:15→16:06)
[2021-12-20] MEDS: KETOROLAC EYE 0.5% 3 ML BOTTLE RIGHTEYE SCH ×2 (08:15→16:06)
[2021-12-20] MEDS: prednisoLONE ACETATE 1% SUSP 5 ML BOTTLE RIGHTEYE SCH ×4 (08:15→20:52)
[2021-12-20] MEDS: LOPERAMIDE HCL (2 MG CAP) 2 MG CAPSULE PO PRN (12:48)
[2021-12-20 16:00] VITALS: BP 137/71
--- NOTE | 2021-12-20 19:30 | NUR ---
GPS RN NOTE PATIENT IN BED AWAKE. A/O X3 AND ABLE TO MAKE NEEDS KNOWN. NO S/SX OF ACUTE DISTRESS NOTED. PATIENT REMAINS ANXIOUS, DEPRESSED, GUARDED, NEEDY. DENIES SI/HI AT THIS TIME. SAFETY PRECAUTIONS MAINTAINED. WILL CONTINUE TO MONITOR Q15MIN ROUNDS FOR SAFETY AND BEHAVIOR.
[2021-12-20 20:00] VITALS: BP 141/70
[2021-12-20 20:06] VITALS: BP 141/70
[2021-12-20] MEDS: TEMAZEPAM 7.5 MG CAPSULE PO PRN (20:52)
--- NOTE | 2021-12-20 20:53 | NUR ---
RN NOTE PT REQUESTED SLEEPING PILL. ADMINISTERED RESTORIL 7.5 MG FOR INSOMNIA ORDERED. ALL NEEDS MET A THIS TIME.
--- NOTE | 2021-12-20 21:04 | NUR ---
RN NOTE PT REQUESTED TYLENOL FOR BODY ACHES. MEDICATION BARCODE NOT SCANNING, VERIFIED MEDICATION WITH YAIMA KINCAID, MANUAL BARCODE ENTRY. ADMINISTERED TYLENOL 650 MG FOR MILD PAIN ORDERED. ALL NEEDS MET AT THIS TIME.
[2021-12-21 08:00] VITALS: BP 136/71
[2021-12-21] MEDS: ENSURE ENLIVE CHOC 237 ML CAN PO SCH ×2 (08:58→16:39)
[2021-12-21] MEDS: ESCITALOPRAM OXALATE (10 MG) 10 MG TABLET PO SCH (09:22)
[2021-12-21] MEDS: PREGABALIN 25 MG CAPSULE PO SCH ×2 (09:22→21:38)
[2021-12-21] MEDS: KETOROLAC EYE 0.5% 3 ML BOTTLE RIGHTEYE SCH ×2 (09:23→16:39)
[2021-12-21] MEDS: ACETAMINOPHEN 325 MG TABLET PO PRN ×2 (09:31→22:00)
[2021-12-21] MEDS: TIMOLOL 0.25% SOL OPHTH 10 ML BOTTLE RIGHTEYE SCH ×2 (09:32→16:38)
[2021-12-21] MEDS: prednisoLONE ACETATE 1% SUSP 5 ML BOTTLE RIGHTEYE SCH ×4 (09:33→21:00)
[2021-12-21] MEDS: LATANOPROST EYE DROP 0.005% 2.5 ML BOTTLE RIGHTEYE SCH ×2 (09:33→16:38)
[2021-12-21 16:00] VITALS: BP 141/65
[2021-12-21] MEDS: LOPERAMIDE HCL (2 MG CAP) 2 MG CAPSULE PO PRN (19:41)
--- NOTE | 2021-12-21 19:43 | NUR ---
RN-NOTE PATIENT C/O DIARRHEA AND REQUESTED IMODIUM, IMODIUM 2 MG PO GIVEN PRN ORDER.
[2021-12-21 19:58] VITALS: BP 143/67
[2021-12-21 20:02] VITALS: BP 143/67
--- NOTE | 2021-12-21 21:40 | NUR ---
RN NOTE: MEDICATION REFUSAL PATIENT REFUSED PREDNISOLONE EYE DROPS SCHEDULED AT 2100, PER PATIENT," I DON'T NEED IT ANYMORE." DESPITE OF RISKS AND BENEFITS EXPLANATIONS, PATIENT CONTINUED TO REFUSE X3.
--- NOTE | 2021-12-21 22:00 | NUR ---
RN NOTE: PAIN PATIENT C/O HEADACHE 07/09 AND WANTED TO TAKE TYLENOL AT THIS TIME. PRN TYLENOL 650 MG PO ADMINISTERED ORDERED BY .
[2021-12-21] MEDS: TEMAZEPAM 7.5 MG CAPSULE PO PRN (23:13)
--- NOTE | 2021-12-21 23:15 | NUR ---
GPS RN NOTE: INSOMNIA PATIENT C/O INABILITY TO SLEEP AND REQUESTED TO TAKE SLEEPING MEDICINE. PER PATIENT REQUEST PRN RESTORIL 7.5 MG 1 CAP PO ADMINISTERED ORDERED BY .
[2021-12-22 08:00] VITALS: BP 127/73
[2021-12-22] MEDS: ESCITALOPRAM OXALATE (10 MG) 10 MG TABLET PO SCH (08:58)
[2021-12-22] MEDS: PREGABALIN 25 MG CAPSULE PO SCH ×2 (08:58→21:20)
[2021-12-22] MEDS: KETOROLAC EYE 0.5% 3 ML BOTTLE RIGHTEYE SCH ×2 (09:00→16:27)
[2021-12-22] MEDS: LATANOPROST EYE DROP 0.005% 2.5 ML BOTTLE RIGHTEYE SCH ×2 (09:00→16:27)
[2021-12-22] MEDS: TIMOLOL 0.25% SOL OPHTH 10 ML BOTTLE RIGHTEYE SCH ×2 (09:00→16:27)
[2021-12-22] MEDS: prednisoLONE ACETATE 1% SUSP 5 ML BOTTLE RIGHTEYE SCH ×4 (09:00→21:23)
--- NOTE | 2021-12-22 09:00 | NUR ---
RN NOTE- AWAKE DEPRESSED FLAT AFFECT DIRECTABLE MED COMPLIANT
[2021-12-22] MEDS: ENSURE ENLIVE CHOC 237 ML CAN PO SCH ×2 (09:05→16:26)
[2021-12-22] MEDS: LOPERAMIDE HCL (2 MG CAP) 2 MG CAPSULE PO PRN ×2 (09:08→21:20)
[2021-12-22 16:00] VITALS: BP 119/63
[2021-12-22] MEDS: SALINE NASAL SPRAY 0.65% 1 BOTTLE BOTTLE NS PRN (20:08)
--- NOTE | 2021-12-22 20:08 | NUR ---
RN NOTE PATIENT C/O NASAL DRYNESS AND REQUESTED NASAL SPRAY. PER PATIENT REQUEST, NASAL SPRAY PROVIDED TO THE PATIENT AND PATIENT WANTED TO SPRAY HER NOSE BY HERSELF. WILL CONTINUE TO MONITOR.
[2021-12-22 20:41] VITALS: BP 143/79
[2021-12-22] MEDS: TEMAZEPAM 7.5 MG CAPSULE PO PRN (22:00)
[2021-12-22] MEDS: ACETAMINOPHEN 325 MG TABLET PO PRN (22:25)
--- NOTE | 2021-12-22 22:26 | NUR ---
RN NOTE: PAIN PATIENT C/O HEADACHE 07/09 AND WANTED TO TAKE TYLENOL AT THIS TIME. PRN TYLENOL 650 MG PO ADMINISTERED ORDERED BY .
[2021-12-23 08:00] VITALS: BP 119/60
[2021-12-23] MEDS: ENSURE ENLIVE CHOC 237 ML CAN PO SCH ×2 (08:00→17:17)
[2021-12-23] MEDS: ESCITALOPRAM OXALATE (10 MG) 10 MG TABLET PO SCH (09:20)
[2021-12-23] MEDS: PREGABALIN 25 MG CAPSULE PO SCH ×2 (09:20→21:21)
[2021-12-23] MEDS: LATANOPROST EYE DROP 0.005% 2.5 ML BOTTLE RIGHTEYE SCH ×2 (09:21→17:17)
[2021-12-23] MEDS: prednisoLONE ACETATE 1% SUSP 5 ML BOTTLE RIGHTEYE SCH ×4 (09:21→21:27)
[2021-12-23] MEDS: KETOROLAC EYE 0.5% 3 ML BOTTLE RIGHTEYE SCH ×2 (09:21→17:16)
[2021-12-23] MEDS: TIMOLOL 0.25% SOL OPHTH 10 ML BOTTLE RIGHTEYE SCH ×2 (09:22→17:17)
[2021-12-23 16:00] VITALS: BP 127/78
[2021-12-23 20:00] VITALS: BP 131/69
[2021-12-23] MEDS: TEMAZEPAM 7.5 MG CAPSULE PO PRN (22:11)
[2021-12-23] MEDS: ACETAMINOPHEN 325 MG TABLET PO PRN (22:28)
--- NOTE | 2021-12-23 22:29 | NUR ---
RN NOTE: PAIN PATIENT C/O BACK PAIN 07/09 AND WANTED TO TAKE TYLENOL AT THIS TIME. PRN TYLENOL 650 MG PO ADMINISTERED ORDERED BY .
--- NOTE | 2021-12-23 22:43 | NUR ---
COVID SPECIMEN COLLECTED AND WILL BE SENT TO LAB.
--- NOTE | 2021-12-23 23:35 | NUR ---
COVID SPECIMEN SENT TO LAB. Addendum: 12/23/21 at 2336 by SHINE POTTER RN COVID SPECIMEN WAS SENT TO LAB AT 2200
--- NOTE | 2021-12-24 06:38 | NUR ---
PATIENT SLEPT WELL AT NIGHT, COOPERATIVE, NO ACUTE CHANGES NOTED.
--- NOTE | 2021-12-24 07:29 | NUR ---
GPS RN OPENING NOTE RECEIVED PATIENT RESTING IN BED AWAKE, A & O X 3, NO S/SX OF ACUTE DISTRESS NOTED. PATIENT PLEASANT, COOPERATIVE, DENIES BEING SUICIDAL OR HOMICIDAL AT THIS TIME. DENIES ANY C/O PAIN AT THIS TIME. AMBULATORY, STEADY GAIT. BED IN LOWEST AND LOCKED POSITION. SAFETY PRECAUTIONS MAINTAINED. WILL CONTINUE TO MONITOR Q15MIN ROUNDS FOR SAFETY AND BEHAVIOR.
--- NOTE | 2021-12-24 07:42 | NUR ---
SW Discharge Note: Patient will be discharged to [facility] [address], [place] [address] ([phone]). Please arrange ambulance transportation at 1PM. Spoke with Rhonda, Admin Coordinator at the facility who states they are ready to accept the patient today. Patients DPOA daughter Lea ([phone]). Patient is alert and oriented x3, is unable to plan for self-care at this time, however, is willing to accept care at [facility]. Patient denies any suicidal or homicidal ideation. Patient will follow-up at the facility [place]. [place] [address] [place] [address]; ([phone]) and (Gre Tutor) Dr. Leija [address], [place] [address]; ([phone]). Patient presents with euthymic mood and congruent affect.
[2021-12-24 08:00] VITALS: BP 119/75
[2021-12-24] MEDS: ENSURE ENLIVE CHOC 237 ML CAN PO SCH (08:00)
--- NOTE | 2021-12-24 08:30 | NUR ---
GPS RN NOTE PT REFUSED HER ENSURE DRINK, EXPLAINED RISK AND BENEFITS X3 STILL STRONGLY REFUSED. PER PT IT MAKES HER HAVE DIARRHEA.
[2021-12-24] MEDS: LOPERAMIDE HCL (2 MG CAP) 2 MG CAPSULE PO PRN (08:34)
[2021-12-24] MEDS: ESCITALOPRAM OXALATE (10 MG) 10 MG TABLET PO SCH (08:34)
[2021-12-24] MEDS: PREGABALIN 25 MG CAPSULE PO SCH (08:34)
[2021-12-24] MEDS: prednisoLONE ACETATE 1% SUSP 5 ML BOTTLE RIGHTEYE SCH ×2 (08:36→12:34)
[2021-12-24] MEDS: TIMOLOL 0.25% SOL OPHTH 10 ML BOTTLE RIGHTEYE SCH (08:37)
[2021-12-24] MEDS: LATANOPROST EYE DROP 0.005% 2.5 ML BOTTLE RIGHTEYE SCH (08:37)
[2021-12-24] MEDS: KETOROLAC EYE 0.5% 3 ML BOTTLE RIGHTEYE SCH (08:37)
--- NOTE | 2021-12-24 08:45 | NUR ---
GPS RN NOTE PT C/O DIARRHEA AND REQUESTED FOR IMODIUM. IMODIUM 2MG ADMINISTERED ORDERED PRN Q4H FOR DIARRHEA. WILL MONITOR AND REASSESS PT.
--- NOTE | 2021-12-24 13:05 | NUR ---
GPS RN NOTE PATIENT RESTING IN BED AWAKE, A & O X 3, NO S/SX OF ACUTE DISTRESS NOTED. PATIENT REMAINS PLEASANT, COOPERATIVE, DENIES BEING SUICIDAL OR HOMICIDAL AT THIS TIME. DENIES ANY C/O PAIN AT THIS TIME. AMBULATORY, STEADY GAIT. BED IN LOWEST AND LOCKED POSITION. SAFETY PRECAUTIONS MAINTAINED. WILL CONTINUE TO MONITOR Q15MIN ROUNDS FOR SAFETY AND BEHAVIOR.
[2021-12-24] MEDS: ACETAMINOPHEN 325 MG TABLET PO PRN (13:35)
--- NOTE | 2021-12-24 13:35 | NUR ---
GPS RN NOTE PT C/O HEADACHE AND REQUESTED FOR TYLENOL. TYLENOL 650MG ADMINISTERED ORDERED PRN Q6H FOR MILD PAIN. WILL MONITOR AND REASSESS PT.
--- NOTE | 2021-12-24 14:40 | NUR ---
DISCHARGE GPS RN NOTE PT DISCHARGED TO [facility] IN STABLE CONDITION. PT A/O X3, ABLE TO MAKE NEEDS KNOWN. ON RA, TOLERATING WELL WITH SPO2 96%. NO SOB NOTED. NOT IN ANY SIGN OF RESPIRATORY DISTRESS. VITAL SIGNS TAKEN, STABLE, AND RECORDED. PT REFUSED SKIN ASSESSMENTS AND PHOTOGRAPHS OF SKIN ISSUES. ALL BELONGINGS ACCOUNTED FOR. DISCHARGED INSTRUCTIONS AND HEALTH TEACHINGS GIVEN TO PT AND PT VERBALIZED UNDERSTANDING. PT HAS NO IV ACCESS. REPORT GIVEN EARLIER TO TODD RAMON OF [facility]. PT LEFT THE UNIT AT 1435 VIA GURNEY ACCOMPANIED BY 2 FITTER TYPE BAR AND SEGMENT. MD AND CHARGED NURSE AWARE OF DISCHARGED.
== END 2021-12-24 14:35 | disposition home or self-care (01) | DRG 881 ==
LOC: GPS 20:42
PROVIDERS: ADMIT Nurse Practitioner Psychiatric/Mental Health; ATTEND Nurse Practitioner Acute Care
DX: F32.9 Major depressive disorder, single episode, unspecified (principal); E11.65 Type 2 diabetes mellitus with hyperglycemia; R45.851 Suicidal ideations; F41.9 Anxiety disorder, unspecified; M79.2 Neuralgia and neuritis, unspecified; K21.9 Gastro-esophageal reflux disease without esophagitis; R10.9 Unspecified abdominal pain; F32.A Depression, unspecified; Z98.890 Other specified postprocedural states; Z87.19 Personal history of other diseases of the digestive system; Z87.11 Personal history of peptic ulcer disease; Z79.899 Other long term (current) drug therapy
CPT/HCPCS: 36415; 80048-TC; 80061-TC; 82962-TC; 85025-TC; 87081-TC; J1815; J3420